=== PATIENT | male | born 1940 | race Caucasian/White ===

== ENCOUNTER 2017-01-27 16:12 | Outpatient (CLI) | payer OTHER ==
[2017-01-27 16:43] LABS: eGFR (African) > 60; eGFR (Non-African) 53
== END 2017-01-27 16:13 ==
LOC: LAB 16:12
PROVIDERS: ATTEND Internal Medicine Cardiovascular Disease
DX: I25.119 Atherosclerotic heart disease of native coronary artery with unspecified angina pectoris (principal); Z95.1 Presence of aortocoronary bypass graft
CPT/HCPCS: 80048